=== PATIENT | male | born 2000 | race Hispanic/Latino ===

== ENCOUNTER 2021-06-12 01:19 | Emergency (ER) | payer BC, OTHER ==
[2021-06-12 02:00] LABS: Absolute Lymphocytes (CBC) 3.2 K/uL (0.7-4.9); Basophils % 0.5 % (0-1.3); Hematocrit 42.5 % (39.6-49.0); Lymphocytes % 13.3 % (15.3-44.8); MPV 7.1 fL (7.6-11.3); RBC Red Blood Cell Count 4.71 M/uL (4.33-5.43)
[2021-06-12] MEDS ORDERED: MORPHINE 4 MG/ML SYR ONE (02:01)
[2021-06-12] MEDS ORDERED: ONDANSETRON 4 MG/2 ML VIAL ONE (02:01)
[2021-06-12] MEDS ORDERED: NA CHLORIDE 0.9% 1,000 ML ONE (02:02)
[2021-06-12 02:10] LABS: BUN Blood Urea Nitrogen 18 mg/dL (7-18); Bicarbonate 27 mmol/L (21-32); Glucose Level 131 mg/dL (74-106); Potassium 3.9 mmol/L (3.5-5.1); Sodium Level 140 mmol/L (136-145)
--- NOTE | 2021-06-12 02:50 | ER ---
Nurse's Notes [facility] Name: Fidel Limon Age: 20 yrs Sex: Male : 2000 Arrival Date: 06/12/2021 Time: : Bed 7 Private MD: Diagnosis: Epididymitis Presentation: 06/12 01:25 Chief complaint: Patient states: Pt co right testicle pain x 4 days, states is the size dc2 of a baseball. Reports taking aleeve around 1230 which helped but pain is increasing. 01:25 Coronavirus screen: Vaccine status: Patient reports receiving the 2nd dose of the covid dc2 vaccine. Client denies travel out of the [place] in the last 14 days. Client presents with at least one sign or symptom that may indicate coronavirus-19. At this time, the client does not indicate any symptoms associated with coronavirus-19. Ebola Screen: Patient negative for fever greater than or equal to 101.5 degrees Fahrenheit, and additional compatible Ebola Virus Disease symptoms Patient denies exposure to infectious person. Patient denies travel to an Ebola-affected area in the 21 days before illness onset. Initial Sepsis Screen: Does the patient meet any 2 criteria? No. Patient's initial sepsis screen is negative. Initial Sepsis Screen: Does the patient meet any 2 criteria? No. Patient's initial sepsis screen is negative. Risk Assessment: Do you want to hurt yourself or someone else? Patient reports no desire to harm self or others. Onset of symptoms was June 07, 2021. Care prior to arrival: None. 01:25 Acuity: LEXIE 2 dc2 01:25 Method Of Arrival: Ambulatory dc2 03:50 Initial Sepsis Screen: Does the patient have a suspected source of infection? No. cw2 Patient's initial sepsis screen is negative. Triage Assessment: 01:25 General: Appears uncomfortable, Behavior is calm, cooperative. dc2 03:48 Pain: Complains of pain in groin. Neuro: No deficits noted. Cardiovascular: No deficits cw2 noted. Respiratory: No deficits noted. GI: No deficits noted. Historical: - Allergies: 01:25 No Known Allergies; dc2 - PMHx: 01:45 Hypertensive disorder; dc2 - PSHx: 01:45 Heart Valve replacement; dc2 - Immunization history:: Adult Immunizations up to date, Client reports receiving the 2nd dose of the Covid vaccine. - Social history:: Smoking status: Patient reports the use of cigarette tobacco products, unknown amount Patient uses street drugs, marijuana. Screenin:46 Abuse screen: Denies threats or abuse. Nutritional screening: No deficits noted. cw2 Tuberculosis screening: No symptoms or risk factors identified. Fall Risk None identified. Assessment: 03:47 GI: Abd is soft and non tender X 4 quads. cw2 Vital Signs: 01:25 BP 145 / 81; Pulse 122; Resp 18; Pulse Ox 97% ; Pain 5/10; dc2 01:25 Weight 63.5 kg; Height 5 ft. 5 in. (165.10 cm) (R); dc2 01:25 Body Mass Index 23.30 (63.50 kg, 165.10 cm) dc2 ED Course: 01:21 Patient arrived in ED. bp1 01:31 [facility] kb 01:31 Gabriel Koch MD is Attending Physician. kb 01:37 Triage completed. dc2 02:14 US Scrotum Testicles In Process Unspecified. EDMS 03:46 Arm band placed on left wrist. cw2 03:46 TESTICULAR CHECK. Inserted saline lock: 20 gauge in left antecubital area, using cw2 aseptic technique. Blood collected. 03:48 Patient did not have IV access during this emergency room visit. cw2 03:49 Patient has correct armband on for positive identification. Placed in gown. Call light cw2 in reach. Administered Medications: 02:26 Drug: morphine 4 mg Route: IVP; Site: right antecubital; cw2 02:26 Drug: Zofran (Ondansetron) 4 mg Route: IVP; Site: right antecubital; cw2 02:26 Drug: NS 0.9% 1000 ml Route: IV; Rate: 1000 ml; Site: right antecubital; cw2 02:29 Drug: Rocephin (cefTRIAXone) 1 grams Route: IV; Rate: calculated rate; Site: left cw2 antecubital; 02:58 Drug: Zithromax (azithromycin) 1 grams Route: PO; cw2 Outcome: 02:49 Discharge ordered by . kb 03:48 Condition: good cw2 03:48 Discharged to home via wheelchair. cw2 03:48 Discharge instructions given to patient, Instructed on discharge instructions, follow up and referral plans. 03:50 Patient left the ED. cw2 Signatures: Dispatcher [employer] Iveth Larose, TE-C TAILER IN-Bria Marie Denise, RN RN dc2 Merritt Live RN RN cw2
--- NOTE | 2021-06-12 02:50 | EDPHYS ---
Physician Documentation [facility] Name: Fidel Limon Age: 20 yrs Sex: Male : 2000 Arrival Date: 06/12/2021 Time: 01:21 Bed 7 Private MD: ED Physician Gabriel Koch HPI: 06/12 01:37 This 20 yrs old Male presents to ER via Ambulatory with complaints of kb Abdominal Pain, Testicular Swelling. 01:39 The patient presents with scrotal pain, of the right side, with swelling, with kb erythema, swelling, that is moderate, of the right testicle, tenderness, that is moderate, that is severe, of the right testicle. Onset: The symptoms/episode began/occurred 3 day(s) ago. Modifying factors: The symptoms are alleviated by nothing, the symptoms are aggravated by movement, pressure. Associated signs and symptoms: The patient has no apparent associated signs or symptoms. Severity of symptoms: At their worst the symptoms were moderate, in the emergency department the symptoms are unchanged. The patient has not experienced similar symptoms in the past. The patient has not recently seen a physician. Historical: - Allergies: 01:25 No Known Allergies; dc2 - PMHx: 01:45 Hypertensive disorder; dc2 - PSHx: 01:45 Heart Valve replacement; dc2 - Immunization history:: Adult Immunizations up to date, Client reports receiving the 2nd dose of the Covid vaccine. - Social history:: Smoking status: Patient reports the use of cigarette tobacco products, unknown amount Patient uses street drugs, marijuana. ROS: 01:38 Constitutional: Negative for fever, chills, and weight loss. kb 01:38 : Positive for testicular pain 01:38 All other systems are negative. Exam: 01:38 Constitutional: This is a well developed, well nourished patient who is awake, alert, kb and in no acute distress. Head/Face: Normocephalic, atraumatic. ENT: Moist Mucous membranes Respiratory: Respirations even and unlabored. No increased work of breathing, no retractions or nasal flaring. Abdomen/GI: Soft, non-tender. No distention Skin: Warm, dry with normal turgor. Normal color. MS/ Extremity: Pulses equal, no cyanosis. Neurovascular intact. Full, normal range of motion. Neuro: Awake and alert, GCS 15, oriented to person, place, time, and situation. Moves all extremities. Normal gait. Psych: Awake, alert, with orientation to person, place and time. Behavior, mood, and affect are within normal limits. 01:38 : Male external genitalia: Circumcision noted. swelling: of the right testicle is noted, scrotal, that is moderate, tenderness, of the right testicle is noted, that is moderate, that is severe. Vital Signs: 01:25 BP 145 / 81; Pulse 122; Resp 18; Pulse Ox 97% ; Pain 5/10; dc2 01:25 Weight 63.5 kg; Height 5 ft. 5 in. (165.10 cm) (R); dc2 01:25 Body Mass Index 23.30 (63.50 kg, 165.10 cm) dc2 MDM: 01:31 Patient medically screened. kb 01:37 Data reviewed: vital signs, nurses notes. Data interpreted: Pulse oximetry: on room air kb is 97 %. Interpretation: normal. 02:41 Transition of care: After a detail discussion of the patient's case, care is kb transferred to Gabriel Koch MD. 02:48 Counseling: I had a detailed discussion with the patient and/or guardian regarding: the kb historical points, exam findings, and any diagnostic results supporting the discharge/admit diagnosis, lab results, radiology results, the need for outpatient follow up, a family practitioner, to return to the emergency department if symptoms worsen or persist or if there are any questions or concerns that arise at home. 06/12 01:34 Order name: CBC with Diff kb 06/12 01:34 Order name: Basic Metabolic Panel; Complete Time: 02:11 kb 06/12 01:34 Order name: US Scrotum Testicles kb 06/12 02:07 Order name: Manual Differential EDMS 06/12 01:34 Order name: IV Start; Complete Time: 02:26 kb Administered Medications: 02:26 Drug: morphine 4 mg Route: IVP; Site: right antecubital; cw2 02:26 Drug: Zofran (Ondansetron) 4 mg Route: IVP; Site: right antecubital; cw2 02:26 Drug: NS 0.9% 1000 ml Route: IV; Rate: 1000 ml; Site: right antecubital; cw2 02:29 Drug: Rocephin (cefTRIAXone) 1 grams Route: IV; Rate: calculated rate; Site: left cw2 antecubital; 02:58 Drug: Zithromax (azithromycin) 1 grams Route: PO; cw2 Disposition: 05:53 Co-signature as Attending Physician, Gabriel Koch MD. [email or web address] Disposition Summary: 06/12/21 02:49 Discharge Ordered Location: Home kb Condition: Stable kb Diagnosis - Epididymitis kb Followup: kb - With: Emergency Department - When: As needed - Reason: Worsening of condition Followup: kb - With: Private Physician - When: 2 - 3 days - Reason: Recheck today's complaints, Continuance of care, Re-evaluation by your physician Discharge Instructions: - Discharge Summary Sheet kb - Epididymitis kb Forms: - Medication Reconciliation Form kb - Thank You Letter kb - Antibiotic Education kb - Prescription Opioid Use kb Prescriptions: - Doxycycline Hyclate 100 mg Oral Tablet - take 1 tablet by ORAL route every 12 hours; 20 tablet; Refills: 0, Product kb Selection Permitted Signatures: Dispatcher [employer] EDIveth Marroquin, CHANGE MANAGEMENT MANAGER-C CHANGE MANAGEMENT MANAGER-Gabriel Edwards MD MD [email or web address] CynthiaLiv RN RN dc2 Merritt Live, RN RN cw2 Corrections: (The following items were deleted from the chart) 03:29 02:13 Urine Dipstick-Ancillary ordered. kb jb4
[2021-06-12] MEDS ORDERED: CEFTRIAXONE 1000 MG/VIAL ONE (02:53)
[2021-06-12] MEDS ORDERED: AZITHROMYCIN 250 MG TAB ONE (03:22)
[2021-06-12 03:30] LABS: Blood Morphology Comment NOT SEEN (NOT SEEN); Platelet Estimate ADEQ
[2021-06-12 03:58] VITALS: BP 145/81; O2SAT 97
--- NOTE | 2021-06-12 14:17 | RAD REPORT ---
EXAM DESCRIPTION: Scrotum Testicles 06/12/2021 2:37 AM CDT CLINICAL HISTORY: 20 years, Male, r/o torsion COMPARISON: None. FINDINGS: Multiple grayscale images of the testicles were performed. Color Doppler imaging was used to assess vascular flow. The right testicle measures 5.0 x 2.5 x 3.3 cm, the right epididymis measured 2.4 x 1.3 cm. There is a minimal complex hydrocele prominent epididymal head with a slight increase vascular flow measuring 2.9 cm suspicious for acute epididymitis. There is normal flow within the right testicle. The left testicle measured 3.8 x 2.7 x 3.4 cm, the left epididymis measured 1.1 x 1.1 cm. There is no evidence for hydrocele and/or varicocele. There is normal vascular flow. IMPRESSION: HETEROGENEOUS AREA SUPERIOR TO THE RIGHT TESTICLE/EPIDIDYMAL HEAD SUSPICIOUS FOR EPIDIDY MITIS. OTHERWISE UNREMARKABLE TESTICULAR ULTRASOUND. Electronically signed by: Ryland Anderson MD 06/12/2021 2:39 AM CDT Due to temporary technical issues with the PACS/Fluency reporting system, reports are being signed by the in house radiologists without review as a courtesy to insure prompt reporting. The interpreting radiologist is fully responsible for the content of the report.
== END 2021-06-12 03:50 | disposition home or self-care (01) ==
LOC: ER 01:19
DX: N45.1 Epididymitis (principal); I10 Essential (primary) hypertension; Z72.0 Tobacco use; Z95.818 Presence of other cardiac implants and grafts
CPT/HCPCS: 85025; 80048; 36415; 76870; 99284; J7030; J2405

== ENCOUNTER 2022-07-31 04:21 | Emergency (ER) | payer BC ==
[2022-07-31] MEDS ORDERED: LIDOCAINE 1% 20 ML MDV ONE (05:11)
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
[2022-07-31 06:06] VITALS: BP 138/84; O2SAT 100
--- NOTE | 2022-07-31 10:19 | RAD REPORT ---
EXAM DESCRIPTION: RAD - Elbow Left 3 View - 07/31/2022 4:48 am CLINICAL HISTORY: 22 years Male PAIN COMPARISON: None FINDINGS: 3 views of the left elbow. Normal mineralization. No acute fracture or dislocation. Joint spaces are maintained. IMPRESSION: No acute bony finding. Electronically signed by: Deena Zapata MD 07/31/2022 5:34 AM SUPERINTENDENT [employer] Due to temporary technical issues with the PACS/Fluency reporting system, reports are being signed by the in house radiologists without review as a courtesy to insure prompt reporting. The interpreting radiologist is fully responsible for the content of the report.
== END 2022-07-31 06:00 | disposition home or self-care (01) ==
LOC: ER 04:21
PROC: 0JQF0ZZ Repair Left Upper Arm Subcutaneous Tissue and Fascia, Open Approach (ICD-10-PCS; principal; 2022-07-31)
DX: S41.112A Laceration without foreign body of left upper arm, initial encounter (principal); W13.4XXA Fall from, out of or through window, initial encounter; Y93.89 Activity, other specified; Y92.149 Unspecified place in prison as the place of occurrence of the external cause
CPT/HCPCS: 99284

== ENCOUNTER 2025-07-03 16:10 | Emergency (ER) | payer BC ==
[2025-07-03] MEDS ORDERED: HYDROCODONE/APAP 10/325 TAB ONE (16:34)
--- NOTE | 2025-07-03 16:38 | ER ---
Nurse's Notes [facility] Name: Fidel Limon Age: 25 yrs Sex: Male : 2000 Arrival Date: 07/03/2025 Time: 16:10 Bed 9 Private MD: Diagnosis: Cellulitis of unspecified finger Presentation: 07/03 16:23 Chief complaint: Patient states: RT 4TH FINGER PAIN AND SWELLING GOING UP ARM STARTED dd2 YESTERDAY, AND SWELLING ON SEAN GREAT TOE, SEAN 5TH TOES. Coronavirus screen: At this time, the client does not indicate any symptoms associated with coronavirus-19. Ebola Screen: No symptoms or risks identified at this time. Initial Sepsis Screen: Does the patient meet any 2 criteria? No. Patient's initial sepsis screen is negative. Does the patient have a suspected source of infection? No. Patient's initial sepsis screen is negative. Risk Assessment: Do you want to hurt yourself or someone else? Patient reports no desire to harm self or others. Onset of symptoms was July 02, 2025. 16:23 Method Of Arrival: Ambulatory dd2 16:23 Acuity: LEXIE 4 dd2 Triage Assessment: 16:26 General: Appears in no apparent distress. uncomfortable, Behavior is calm, cooperative, dd2 appropriate for age. Pain: Complains of pain in right ring finger. Derm: Wound noted right ring fingernail, right second toe, Right first toenail, Right third toenail, Right fourth toenail, left fifth toe, Left fifth toenail and Left first toenail EDEMA RT 4TH FINGER. Historical: - Allergies: 16:26 No Known Allergies; dd2 - PMHx: 16:26 Hypertensive disorder; dd2 - PSHx: 16:26 Heart Valve replacement; dd2 - Immunization history:: Adult Immunizations unknown. - Infectious Disease History:: Denies. - Social history:: Smoking status: Reported history of juuling and/or vaping. - Family history:: not pertinent. - Hospitalizations: : No recent hospitalization is reported. Screenin:29 [facility] ED Fall Risk Assessment (Adult) History of falling in the last 3 months, kj2 including since admission No falls in past 3 months (0 pts) Confusion or Disorientation No (0 pts) Intoxicated or Sedated No (0 pts) Impaired Gait No (0 pts) Mobility Assist Device Used No (0 pt) Altered Elimination No (0 pt) Score/Fall Risk Level 0 - 2 = Low Risk Maintained a safe environment, Hourly rounding (assess needs \T\ fall precautionary measures) done. Abuse screen: Denies threats or abuse. Denies injuries from another. Nutritional screening: No deficits noted. Tuberculosis screening: No symptoms or risk factors identified. Assessment: 16:28 General: Appears in no apparent distress. Behavior is cooperative. Pain: Complains of kj2 pain in right ring finger Pain currently is 6 out of 10 on a pain scale. Neuro: Level of Consciousness is awake, Oriented to person, place, time, situation. Cardiovascular: Patient's skin is warm and dry. Respiratory: Airway is patent Respiratory effort is unlabored. GI: No signs and/or symptoms were reported involving the gastrointestinal system. : No signs and/or symptoms were reported regarding the genitourinary system. Vital Signs: 16:23 BP 132 / 90; Pulse 98; Resp 16; Temp 98.2; Pulse Ox 100% ; Weight 68.04 kg; Height 5 dd2 ft. 5 in. ; Pain 8/10; 16:23 Body Mass Index 24.96 (68.04 kg, 165.1 cm) dd2 16:23 Pain Scale: Adult dd2 ED Course: 16:14 Patient arrived in ED. im 16:15 Tanvir Marino MD is Attending Physician. rn 16:26 Triage completed. dd2 16:26 Lesia Bass RN is Primary Nurse. kj2 16:26 Arm band placed on left wrist. dd2 16:30 Patient has correct armband on for positive identification. Call light in reach. kj2 Provided Education on: call light. 16:46 No provider procedures requiring assistance completed. Patient did not have IV access kj2 during this emergency room visit. Administered Medications: 16:42 Drug: Clindamycin PO 300 mg PO once Route: PO; kj2 16:45 Follow up: Response: Medication administered at discharge. kj2 16:45 Drug: HYDROcodone-acetaminophen PO 10 mg-325 mg 1 tabs PO once Route: PO; kj2 16:45 Follow up: Response: Medication administered at discharge. kj2 Medication: 16:31 VIS not applicable for this client. kj2 Outcome: 16:37 Discharge ordered by . rn 16:46 Discharged to home ambulatory, kj2 16:46 Condition: stable 16:46 Discharge instructions given to patient, family, Instructed on discharge instructions, follow up and referral plans. Demonstrated understanding of instructions, follow-up care, 16:55 Patient left the ED. kj2 Signatures: Tanvir Marino MD MD rn Mendoza, Itzel im Jordan, Krystal, RN RN kj2 MAGNOLIA SORIA RN RN dd2 Corrections: (The following items were deleted from the chart) 16:29 16:26 Derm: Wound noted right ring fingernail EDEMA RT 4TH FINGER dd2 dd2
--- NOTE | 2025-07-03 16:38 | EDPHYS ---
Physician Documentation [facility] Name: Fidel Limon Age: 25 yrs Sex: Male : 2000 Arrival Date: 07/03/2025 Time: 16:10 Bed 9 Private MD: ED Physician Tanvir Marino HPI: 07/03 16:34 This 25 yrs old Male presents to ER via Ambulatory with complaints of Finger rn problem, feet problem. 16:34 Patient reports 1 to 2 weeks of right fourth digit pain and swelling with redness. Does rn not bite nails but works as assistant hvac mechanic. Patient reports started and lateral nailbed and has spread up to hand and arm. No drainage. No fluctuance. Also reports months of dealing with similar problems on the feet. Patient reports bilateral feet with irritation at the toes and nails with discoloration. No cyanosis. No trauma. Has tried topical creams and not helping.. Historical: - Allergies: 16:26 No Known Allergies; dd2 - PMHx: 16:26 Hypertensive disorder; dd2 - PSHx: 16:26 Heart Valve replacement; dd2 - Immunization history:: Adult Immunizations unknown. - Infectious Disease History:: Denies. - Social history:: Smoking status: Reported history of juuling and/or vaping. - Family history:: not pertinent. - Hospitalizations: : No recent hospitalization is reported. ROS: 16:34 Constitutional: Negative for fever, chills, and weight loss, Cardiovascular: Negative rn for chest pain, palpitations, and edema, Respiratory: Negative for shortness of breath, cough, wheezing, and pleuritic chest pain, Abdomen/GI: Negative for abdominal pain, nausea, vomiting, diarrhea, and constipation, MS/Extremity: Positive for pain to the right hand and bilateral feet. Neuro: Negative for numbness or tingling Exam: 16:34 Constitutional: This is a well developed, well nourished patient who is awake, alert, rn and in no acute distress. MS/ Extremity: Right fifth digit with very mild erythema, no fluctuance, most consistent with slight paronychia. No evidence of felon. No deep space infection or tenderness along flexor tendons. No fusiform swelling. No tenderness of the hand or forearm. Bilateral feet with what appears to be fungal infection of toes and nails. No lacerations or open wounds or fluctuance of feet. Vital Signs: 16:23 BP 132 / 90; Pulse 98; Resp 16; Temp 98.2; Pulse Ox 100% ; Weight 68.04 kg; Height 5 dd2 ft. 5 in. ; Pain 8/10; 16:23 Body Mass Index 24.96 (68.04 kg, 165.1 cm) dd2 16:23 Pain Scale: Adult dd2 MDM: 16:15 Medical Screening Exam initiated rn 16:34 Differential diagnosis: cellulitis, Paronychia, fungal infection. Data reviewed: vital rn signs, nurses notes, and as a result, I will discharge patient. Counseling: I had a detailed discussion with the patient and/or guardian regarding the historical points, exam findings, and any diagnostic results supporting the discharge/admit diagnosis, the need for outpatient follow up, to return to the emergency department if symptoms worsen or persist or if there are any questions or concerns that arise at home. Special discussion: I discussed with the patient/guardian in detail that at this point there is no indication for admission to the hospital. It is understood, however, that if the symptoms persist or worsen the patient needs to return immediately for re-evaluation. 16:39 ED course: Recommend longer duration of antifungals for feet. Will prescribe Diflucan rn as well.. 16:44 ED course: Offered patient incision to see if there was pus along fingernail but he rn declines the procedure because he states he already cut it at home and did not get any pus back. Him cutting it at home could have worsened the situation and could explain the cellulitis.. Administered Medications: 16:42 Drug: Clindamycin PO 300 mg PO once Route: PO; kj2 16:45 Follow up: Response: Medication administered at discharge. kj2 16:45 Drug: HYDROcodone-acetaminophen PO 10 mg-325 mg 1 tabs PO once Route: PO; kj2 16:45 Follow up: Response: Medication administered at discharge. kj2 Disposition Summary: 07/03/25 16:37 Discharge Ordered Notes: Location: Home rn Problem: new rn Symptoms: are unchanged rn Condition: Stable rn Diagnosis - Cellulitis of unspecified finger rn Followup: rn - With: Private Physician - When: As needed - Reason: Recheck today's complaints, Re-evaluation by your physician Discharge Instructions: - Discharge Summary Sheet rn - Cellulitis, Adult rn - Paronychia rn - Fungal Nail Infection rn Forms: - Medication Reconciliation Form rn - Antibiotic home health rn - Prescription Opioid Use rn - Patient Portal Instructions rn - Leadership Thank You Letter rn Prescriptions: - Clindamycin HCl 300 mg Oral Capsule - take 1 capsule ORAL route every 6 hours for 10 days; 40 capsule; Refills: 0, rn Product Selection Permitted - Diflucan 100 mg Oral tablet - take 2 tablets ORAL route Day 1 for 1 day - then take one tablet by oral route rn every day for 10 days.; 12 tablet; Refills: 0, Product Selection Permitted - Tramadol 50 mg Oral Tablet - take 1 tablet ORAL route every 8 hours as needed; 12 tablet; Refills: 0, rn Product Selection Permitted Signatures: Tanvir Marino MD MD rn Jordan, Krystal, RN RN kj2 MAGNOLIA SORIA RN RN dd2 Corrections: (The following items were deleted from the chart) 16:35 16:34 Constitutional: Negative for fever, chills, and weight loss, Cardiovascular: rn Negative for chest pain, palpitations, and edema, Respiratory: Negative for shortness of breath, cough, wheezing, and pleuritic chest pain, Abdomen/GI: Negative for abdominal pain, nausea, vomiting, diarrhea, and constipation, MS/Extremity: Positive for pain to the right hand and bilateral feet. rn
[2025-07-03 17:15] VITALS: BP 132/90; TEMP 98.2; O2SAT 100
== END 2025-07-03 16:55 | disposition home or self-care (01) ==
LOC: ER 16:10
DX: L03.011 Cellulitis of right finger (principal)
CPT/HCPCS: 99283